=== PATIENT | female | born 1975 | race Caucasian/White ===

== ENCOUNTER 2016-09-26 07:00 | Day surgery (SDC) | payer MEDICAID ==
[2016-09-26] MEDS ORDERED: MIDAZOLAM 2 MG/2 ML INJ ONE (08:31)
[2016-09-26] MEDS ORDERED: FENTANYL CITRATE INJ/PF 100 MCG/2 ML AMPUL ONE (08:31)
[2016-09-26] MEDS ORDERED: PROPOFOL INJ 200 MG/20 ML VIAL IV ONE (08:31)
[2016-09-26] MEDS ORDERED: NALOXONE HCL INJ/PF 0.4 MG/1 ML SDV ONE (09:20)
--- NOTE | 2016-09-26 09:36 | Operative Report ---
Operative Report DATE OF SURGERY: 09/26/16 Operative Report: The risks benefits and alternatives of the procedure explained to the patient in detail and informed consent is obtained that GIF Olympus video scope was inserted into the patient's mouth and hypopharynx the esophagus is identified intubated and insufflated the scope was then advanced through the esophagus stomach and duodenum retroflexion maneuver is done the esophagus stomach and first and second portions of the duodenum examined PREOPERATIVE DIAGNOSIS: Clayton's esophagus with dysplasia POSTOPERATIVE DIAGNOSIS: Status post long segment ablation using the HALO device OPERATION: EGD with the patient SURGEON: KATIE YI ANESTHESIA: GA TISSUE REMOVED OR ALTERED: None. COMPLICATIONS: None. ESTIMATED BLOOD LOSS: none. INTRAOPERATIVE FINDINGS: Long segment Clayton's esophagus starting approximately at 36 cm to 45 cm. A guidewire was placed. The catheter was placed over the wire and positioned starting at approximately 36 cm. 2 applications were performed. The scope and catheter was then removed and the area inspected. Good ablation was done. The patient was reintubated with the scope and guidewire placed again. The next 4 cm was then ablated. This was done without any complications. Photodocumentation was obtained. The patient will need to come back for repeat evaluation and touch up if necessary. PROCEDURE: Patient tolerated the procedure well. She is discharged in good condition. No immediate postprocedure complications are noted. Discharge date 09/26/2016. Discharge activity: Regular. Discharge diet: Regular., No cold liquids. Patient has a 2-3 week follow-up to discuss findings. Repeat Ablation in 6-8 weeks. Patient is instructed to go the emergency room or call the office should there be any further problems or questions.
[2016-09-26] MEDS ORDERED: DEXTROSE 5%-1/2 NORMAL SALINE 1,000 ML IV PRN (09:51)
[2016-09-26] MEDS ORDERED: ACETAMINOPHEN 325 MG TABLET PO PRN (09:52)
[2016-09-26] MEDS ORDERED: SIMETHICONE 80 MG TAB.CHEW PO PRN (09:53)
[2016-09-26] MEDS ORDERED: PROMETHAZINE HCL INJ 25 MG/1 ML VIAL INJ PRN (09:54)
[2016-09-26] MEDS ORDERED: DEXAMETHASONE SOD PHOSPHATE INJ 4 MG/1 ML VIAL ONE (10:59)
[2016-09-26] MEDS ORDERED: GLYCOPYRROLATE INJ 0.4 MG/2 ML VIAL ONE (10:59)
[2016-09-26] MEDS ORDERED: LIDOCAINE 2% INJ-PF (20 MG/ML) 10 ML AMPUL ONE (10:59)
[2016-09-26] MEDS ORDERED: ONDANSETRON HCL INJ/PF 4 MG/2 ML SDV ONE (10:59)
[2016-09-26] MEDS ORDERED: METOCLOPRAMIDE HCL INJ/PF 10 MG/2 ML SDV ONE (10:59)
[2016-09-26 11:47] VITALS: BP 99/65
== END 2016-09-26 11:35 | disposition home or self-care (01) ==
LOC: OROUT 07:00
PROVIDERS: ATTEND Internal Medicine Gastroenterology
PROC: 0D558ZZ Destruction of Esophagus, Via Natural or Artificial Opening Endoscopic (ICD-10-PCS; principal; 2016-09-26 08:30)
DX: K22.719 Barrett's esophagus with dysplasia, unspecified (principal); K80.20 Calculus of gallbladder without cholecystitis without obstruction; G43.909 Migraine, unspecified, not intractable, without status migrainosus; G71.0 Muscular dystrophy; Z79.899 Other long term (current) drug therapy; Z97.5 Presence of (intrauterine) contraceptive device; Z88.0 Allergy status to penicillin
CPT/HCPCS: 43270; C1769; J2250; J1100; J3010; J3490 ×2; J2765; J2310; J2405; J2704; 740

== ENCOUNTER 2016-12-05 06:31 | Day surgery (SDC) | payer MEDICAID ==
[2016-12-03 10:45] LABS: HEMATOCRIT 39.9 % (36.0-47.0); HEMOGLOBIN 13.1 g/dL (12.0-15.5); HGB HCT DIFFERENCE -0.6; MEAN CORPUSCULAR HEMOGLOBIN 28.7 pg (27.0-33.4); MEAN CORPUSCULAR HGB CONC 32.8 g/dL (32.0-36.0); MEAN CORPUSCULAR VOLUME 88 fl (80-97); RED BLOOD COUNT 4.57 10^6/uL (3.72-5.28); RED CELL DISTRIBUTION WIDTH 14.5 % (11.5-14.0)
--- NOTE | 2016-12-03 13:52 | EKG REPORT ---
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
[~2016-12-05 06:31] MED LIST: LACTATED RINGERS 1000 ML IV PRN; LIDOCAINE 0.5% INJ-PF (5 MG/ML) 50 ML SDV SUBCUT PRN
[2016-12-05] MEDS ORDERED: FENTANYL CITRATE INJ/PF 100 MCG/2 ML AMPUL ONE (08:39)
[2016-12-05] MEDS ORDERED: PROPOFOL INJ 200 MG/20 ML VIAL IV ONE (08:40)
[2016-12-05] MEDS ORDERED: MIDAZOLAM 2 MG/2 ML INJ ONE (08:40)
[2016-12-05] MEDS ORDERED: MORPHINE SULFATE 10 MG/ML INJ IV PRN (09:32)
[2016-12-05] MEDS ORDERED: OXYCODONE-ACETAMINOPHEN 5-325 MG TABLET PO PRN (09:32)
[2016-12-05] MEDS ORDERED: PROMETHAZINE HCL INJ 25 MG/1 ML VIAL IV PRN ×3 (09:32→10:44)
[2016-12-05] MEDS ORDERED: MEPERIDINE HCL/PF INJ 25 MG/1 ML DISP.SYRIN IV PRN (09:32)
[2016-12-05] MEDS ORDERED: ONDANSETRON HCL INJ/PF 4 MG/2 ML SDV IV PRN (09:32)
[2016-12-05] MEDS ORDERED: DIPHENHYDRAMINE HCL 50 MG/ML VIAL IV PRN (09:32)
[2016-12-05] MEDS ORDERED: FENTANYL CITRATE INJ/PF 100 MCG/2 ML AMPUL IV PRN (09:32)
--- NOTE | 2016-12-05 09:50 | Operative Report ---
Operative Report DATE OF SURGERY: 12/05/16 Operative Report: The risks benefits and alternatives of the procedure explained to the patient in detail and informed consent is obtained that GIF Olympus video scope was inserted into the patient's mouth and hypopharynx the esophagus is identified intubated and insufflated the scope was then advanced through the esophagus stomach and duodenum retroflexion maneuver is done the esophagus stomach and first and second portions of the duodenum examined PREOPERATIVE DIAGNOSIS: Clayton's esophagus POSTOPERATIVE DIAGNOSIS: Clayton's esophagus status post ablation OPERATION: EGD with ablation SURGEON: KATIE YI ANESTHESIA: LMAC TISSUE REMOVED OR ALTERED: None. COMPLICATIONS: None. ESTIMATED BLOOD LOSS: none INTRAOPERATIVE FINDINGS: Clayton's esophagus previously treated. Several small islands that need retreatment. PROCEDURE: Patient tolerated procedure well. No immediate postprocedure complications are noted. Patient is discharged in good condition. Discharge date 12/05/2016. Discharge diet: Regular. Discharge activity: Regular. 2-3 week follow-up to discuss findings. Surveillance upper endoscopy in 1 year. Patient is instructed to all the office or proceed to the emergency room should there be any further problems or questions.
[2016-12-05] MEDS ORDERED: DEXTROSE 5%-1/2 NORMAL SALINE 1,000 ML IV PRN (10:41)
[2016-12-05] MEDS ORDERED: ACETAMINOPHEN 325 MG TABLET PO PRN (10:42)
[2016-12-05] MEDS ORDERED: SIMETHICONE 80 MG TAB.CHEW PO PRN (10:43)
[2016-12-05 13:36] VITALS: BP 90/62
== END 2016-12-05 11:50 | disposition home or self-care (01) ==
LOC: OROUT 06:31
PROVIDERS: ATTEND Internal Medicine Gastroenterology
PROC: 0D558ZZ Destruction of Esophagus, Via Natural or Artificial Opening Endoscopic (ICD-10-PCS; principal; 2016-12-05 08:45)
DX: K22.70 Barrett's esophagus without dysplasia (principal); Z88.0 Allergy status to penicillin; Z79.899 Other long term (current) drug therapy
CPT/HCPCS: 43270; 93005; 36415; 85027; 81025; 93010; J2250; J3010; J2704; 740

== ENCOUNTER → 2016-12-10 | Outpatient (CLI) | payer MEDICAID | LOC: WI 08:54 | PROVIDERS: ATTEND Physician Assistant | DX: Z12.31 Encounter for screening mammogram for malignant neoplasm of breast (principal) | CPT/HCPCS: 77067; G0202 ==

== ENCOUNTER → 2017-12-23 | Outpatient (CLI) | payer MEDICAID ==
--- NOTE | 2017-12-23 16:54 | WOMENS IMAGING REPORT ---
EXAM DESCRIPTION: BILAT SCREENING MAMMO W/CAD COMPLETED DATE/TIME: 12/23/2017 9:30 am REASON FOR STUDY: ROUTINE SCREENING; Z12.31 Z12.31 ENCNTR SCREEN MAMMOGRAM FOR MALIGNANT NEOPLASM O F BOAZ COMPARISON: 2016 TECHNIQUE: Standard craniocaudal and mediolateral oblique views of each breast recorded using digita l acquisition. LIMITATIONS: None. FINDINGS: No masses, calcifications or architectural distortion. No areas of suspicion. Read with the assistance of CAD. .[facility] - R2 Cenova Version 1.3 .[facility] - R2 Cenova Version 1.3 .[facility] - R2 Cenova Version 2.4 .[facility] [place] R2 Cenova Version 2.4 .[facility] - R2 Proof Machine Operator Version 9.2 IMPRESSION: NORMAL MAMMOGRAM. BIRADS 1. BREAST DENSITY: c. The breasts are heterogeneously dense, which may obscure small masses. BIRAD: 1 NEGATIVE RECOMMENDATION: ROUTINE SCREENING COMMENT: The patient has been notified of the results by letter per SA requirements. Additional no tification policies are in place for contacting patient with suspicious or incomplete findings. Quality ID #[id number]: The [employer] recommends an annual screening mammogram for women aged 40 years or over. This facility utilizes a reminder system to ensure that all patients receive reminder letters, and/or direct phone calls for appointments. This includes reminders for routine scr eening mammograms, diagnostic mammograms, or other Breast Imaging Interventions when appropriate. Th is patient will be placed in the appropriate reminder system. The [employer] (ACR) has developed recommendations for screening MRI of the breast s in certain patient populations, to be used in conjunction with mammography. Breast MRI surveillanc e may be appropriate for women with more than 20% lifetime risk of developing breast cancer as deter mined by genetic testing, significant family history of the disease, or history of mantle radiation f or Hodgkins Disease. ACR Practice Guidelines 2008. TECHNICAL DOCUMENTATION: FINDING NUMBER: (1) ASSESSMENT: (1) JOB ID: [id number] [employer]- All Rights Reserved Reading location - IP/workstation name: [email or web address]
== END ==
LOC: WI 09:00
PROVIDERS: ATTEND Nurse Practitioner Community Health
DX: Z12.31 Encounter for screening mammogram for malignant neoplasm of breast (principal)
CPT/HCPCS: 77067

== ENCOUNTER → 2019-01-21 | Outpatient (CLI) | payer MEDICAID ==
--- NOTE | 2019-01-21 12:31 | WOMENS IMAGING REPORT ---
EXAM DESCRIPTION: BILAT SCREENING MAMMO W/CAD COMPLETED DATE/TIME: 01/21/2019 9:35 am REASON FOR STUDY: Z12.31 ROUTINE BILATERAL SCREENING Z12.31 ENCNTR SCREEN MAMMOGRAM FOR MALIGNANT N EOPLASM OF BOAZ COMPARISON: 2016, 2017 TECHNIQUE: Standard craniocaudal and mediolateral oblique views of each breast recorded using [employer] acquisition. LIMITATIONS: None. FINDINGS: No suspicious masses, suspicious calcifications or architectural distortion. No areas of s uspicion. Read with the assistance of CAD. .[facility] - R2 Ditching Machine Operator Version 9.2 IMPRESSION: ASSESSMENT: Negative MAMMOGRAM. BIRADS 1 BREAST DENSITY: c. The breasts are heterogeneously dense, which may obscure small masses. BIRAD: 1 NEGATIVE RECOMMENDATION: ROUTINE SCREENING Please consider bilateral screening tomosynthesis in January 2020, given heterogeneously dense fibrogland ular tissue bilaterally COMMENT: The patient has been notified of the results by letter per MQSA requirements. Additional no tification policies are in place for contacting patient with suspicious or incomplete findings. Quality ID #[id number]: The [employer] recommends an annual screening mammogram for women aged 40 years or over. This facility utilizes a reminder system to ensure that all patients receive reminder letters, and/or direct phone calls for appointments. This includes reminders for routine scr eening mammograms, diagnostic mammograms, or other Breast Imaging Interventions when appropriate. Th is patient will be placed in the appropriate reminder system. TECHNICAL DOCUMENTATION: FINDING NUMBER: (1) ASSESSMENT: (1) JOB ID: [id number] [employer]- All Rights Reserved Reading location - IP/workstation name: [email or web address]
== END ==
LOC: WI 08:55
PROVIDERS: ATTEND Physician Assistant
DX: Z12.31 Encounter for screening mammogram for malignant neoplasm of breast (principal)
CPT/HCPCS: 77067

== ENCOUNTER → 2020-04-04 | Outpatient (CLI) | payer MEDICAID ==
--- NOTE | 2020-04-04 12:31 | WOMENS IMAGING REPORT ---
EXAM DESCRIPTION: BILAT SCREENING MAMMO W/CAD IMAGES COMPLETED DATE/TIME: 04/04/2020 12:03 pm REASON FOR STUDY: Z12.31 ENCOUNTER FOR SCREENING MAMMOGRAM FOR MALIGNANT NEOPLASM OF BREAST Z12.31 ENCNTR SCREEN MAMMOGRAM FOR MALIGNANT NEOPLASM OF BOAZ COMPARISON: 2016 to 2018 EXAM PARAMETERS: Standard craniocaudal and mediolateral oblique views of each breast recorded using digital acquisition. Read with the assistance of CAD. .[facility] - [employer] Medical Technologist Blood Bank Version 9.2 LIMITATIONS: None. FINDINGS: No suspicious masses, suspicious calcifications or architectural distortion. No areas of c oncern. IMPRESSION: NEGATIVE MAMMOGRAM. BIRADS 1 BREAST DENSITY: c. The breasts are heterogeneously dense, which may obscure small masses. BIRAD: ASSESSMENT: 1 NEGATIVE RECOMMENDATION: ROUTINE SCREENING COMMENT: The patient has been notified of the results by letter per MQSA requirements. Additional no tification policies are in place for contacting patient with suspicious or incomplete findings. Quality ID #[id number]: The [employer] recommends an annual screening mammogram for women aged 40 years or over. This facility utilizes a reminder system to ensure that all patients receive reminder letters, and/or direct phone calls for appointments. This includes reminders for routine scr eening mammograms, diagnostic mammograms, or other Breast Imaging Interventions when appropriate. Th is patient will be placed in the appropriate reminder system. TECHNICAL DOCUMENTATION: FINDING NUMBER: (1) ASSESSMENT: (1) JOB ID: [id number] [employer]- All Rights Reserved Reading location - IP/workstation name: [email or web address]
== END ==
LOC: WI 10:42
PROVIDERS: ATTEND Physician Assistant
DX: Z12.31 Encounter for screening mammogram for malignant neoplasm of breast (principal)
CPT/HCPCS: 77067